=== PATIENT | female | born 1970 | race Caucasian/White ===

== ENCOUNTER 2021-03-15 14:21 | Emergency (ER) | payer OTHER ==
[2021-03-15 14:28] VITALS: TEMP 98
[2021-03-15 14:58] LABS: Glucose,Whole Blood 120 mg/dL (75-99)
[2021-03-15] MEDS ORDERED: ALPRAZolam 0.5 MG TAB PO STA (15:14)
--- NOTE | 2021-03-15 15:19 | ED ---
General Adult HPI - General Chief complaint: Arrhythmia/Palpitations Stated complaint: Chest Pain Time Seen by Provider: 03/15/21 14:47 Source: patient Mode of arrival: wheelchair Limitations: no limitations - History of Present Illness Initial comments: Dictation was produced using [employer] dictation software. please excuse any grammatical, word or spelling errors. Chief Complaint: 50-year-old female presents with acute anxiety History of Present Illness: Patient is 50-year-old feel she presents to the emergency department for acute anxiety. Patient has history of depression. She states that over the last several days she's been feeling more anxious and upset especially with ongoing coronavirus issues and bad news going on in the world. She states that over the last several days she's been having several panic attacks where she feels as though she is cannot have sudden cardiac . Patient denies any history of cardiac issues. She does have a history of thyroid disease. Patient does use tobacco. She has no chest pain or shortness of breath. Today she feels like her anxiety is worse. Patient is a history of depression. The ROS documented in this emergency department record has been reviewed and confirmed by me. Those systems with pertinent positive or negative responses have been documented in the HPI. All other systems are other negative and/or noncontributory. PHYSICAL EXAM: General Impression: Alert and oriented x3, tearful HEENT: Normocephalic atraumatic, extra-ocular movements intact, pupils equal and reactive to light bilaterally, mucous membranes moist. Cardiovascular: Heart regular rate and rhythm Chest: Able to complete full sentences, no retractions, no tachypnea Abdomen: abdomen soft, non-tender, non-distended, no organomegaly Musculoskeletal: Pulses present and equal in all extremities, no peripheral edema Motor: no focal deficits noted Neurological: CN II-XII grossly intact, no focal motor or sensory deficits noted Skin: Intact with no visualized rashes Psych: Normal affect and mood ED course: 50-year-old female presents to the emergency department for anxiety reaction. Vital signs upon arrival are within acceptable limits. EKG is benign. Patient given oral Xanax patient is observed in the emergency department for approximately one hour and 45 minutes. Reevaluated at bedside at 4 PM found to be significantly improved. Patient given few tabs of anxiolytic medications. She is advised to stop watching too much news especially if it triggers her anxiety. Told to follow up with primary care doctor for outpatient management. EKG interpretation: Ventricular rate 75, normal sinus rhythm, DC interval 118, QRS 80, QTc 413. No DC prolongation, no QTC prolongation, no ST or T-wave changes noted. Overall, this EKG is unremarkable - Related Data Home Medications Medication Instructions Recorded Confirmed Mirtazapine [Remeron] 45 mg PO HS 08/18/17 08/18/17 Multivitamins, Thera [Multivitamin 1 tab PO DAILY 08/18/17 08/18/17 (formulary)] Thyroid, Pork [[place] Thyroid] 30 mg PO DAILY 08/18/17 08/18/17 Vitamin B-12 Sl 1000mcg 1,000 mcg PO DAILY 08/18/17 08/18/17 Previous Rx's Medication Instructions Recorded Dicyclomine [Bentyl] 20 mg PO QID #20 tablet 08/18/17 Ondansetron [Zofran ODT] 4 mg PO Q8HR PRN #10 tab 08/18/17 ALPRAZolam [Xanax] 0.5 mg PO DAILY PRN #3 tab 03/15/21 Allergies Allergy/AdvReac Type Severity Reaction Status Date / Time aspirin AdvReac Unknown Verified 03/15/21 14:23 Review of Systems ROS Statement: Those systems with pertinent positive or pertinent negative responses have been documented in the HPI. ROS Other: All systems not noted in ROS Statement are negative. Past Medical History Past Medical History: Thyroid Disorder History of Any Multi-Drug Resistant Organisms: None Reported Past Surgical History: Breast Surgery, Tubal Ligation Additional Past Surgical History / Comment(s): brain surgery (AVM) Past Psychological History: Anxiety, Depression Smoking Status: Current every day smoker Past Alcohol Use History: None Reported Past Drug Use History: None Reported, Marijuana General Exam Limitations: no limitations Course Vital Signs 03/15/21 03/15/21 14:24 15:00 Temperature 98.0 F Pulse Rate 84 Pulse Rate [ 82 Bilateral Radial] Respiratory 22 18 Rate Blood Pressure 109/71 O2 Sat by Pulse 100 Oximetry Medical Decision Making - Lab Data Lab Results 03/15/21 Range/Units 14:57 POC Glucose (mg/dL) 120 H (75-99) mg/dL POC Glu Director Outpatient Services ID Freida Dowd Disposition Clinical Impression: Anxiety reaction Disposition: HOME SELF-CARE Condition: Fair Instructions (If sedation given, give patient instructions): Anxiolysis in Adults (ED) Prescriptions: ALPRAZolam [Xanax] 0.5 mg PO DAILY PRN #3 tab PRN Reason: Anxiety Is patient prescribed a controlled substance at d/c from ED?: Yes If prescribed controlled substance>3 days was MAPS reviewed?: Prescribed <3 Days Referrals: Karol Her MD [Primary Care Provider] - 1-2 days
[2021-03-15 16:29] VITALS: BP 102/66; PULSE 78; RESP 16
== END 2021-03-15 16:29 | disposition home or self-care (01) ==
LOC: EC 14:21
DX: F41.1 Generalized anxiety disorder (principal); F32.9 Major depressive disorder, single episode, unspecified; F17.200 Nicotine dependence, unspecified, uncomplicated; F12.90 Cannabis use, unspecified, uncomplicated; Z79.899 Other long term (current) drug therapy; Z88.6 Allergy status to analgesic agent
CPT/HCPCS: 36415; 93005; 99283

== ENCOUNTER 2021-12-17 10:08 | Emergency (ER) | payer OTHER ==
[2021-12-17 10:25] VITALS: BP 114/76; PULSE 95; RESP 18; TEMP 97.8
[2021-12-17] MEDS ORDERED: LORazepam 2 MG/ML INJ IV STA (10:46)
--- NOTE | 2021-12-17 11:09 | ED ---
General Adult HPI - General Chief complaint: Anxiety Stated complaint: Post Op complications Time Seen by Provider: 12/17/21 10:20 Source: patient, RN notes reviewed, old records reviewed Mode of arrival: ambulatory Limitations: no limitations - History of Present Illness Initial comments: This a 50-year-old female presents emergency Department with a recent past medical history significant breast implant removal on Saturday. Patient states since then she said were very tight bra and she's been panicky and feels very anxious. Patient states she keeps thinking she might because of the restriction around her chest per patient states she's been having tingling in her hands and her feet and having some episodes where she's having palpitations and feeling hot. Patient denies any actual fevers patient denies any drainage. Patient states she has quite a bit going on her life that could make her anxious. - Related Data Home Medications Medication Instructions Recorded Confirmed Mirtazapine [Remeron] 45 mg PO HS 08/18/17 08/18/17 Multivitamins, Thera [Multivitamin 1 tab PO DAILY 08/18/17 08/18/17 (formulary)] Thyroid, Pork [[place] Thyroid] 30 mg PO DAILY 08/18/17 08/18/17 Vitamin B-12 Sl 1000mcg 1,000 mcg PO DAILY 08/18/17 08/18/17 Previous Rx's Medication Instructions Recorded Dicyclomine [Bentyl] 20 mg PO QID #20 tablet 08/18/17 Ondansetron [Zofran ODT] 4 mg PO Q8HR PRN #10 tab 08/18/17 ALPRAZolam [Xanax] 0.5 mg PO DAILY PRN #3 tab 03/15/21 Allergies Allergy/AdvReac Type Severity Reaction Status Date / Time aspirin AdvReac Unknown Verified 12/17/21 10:24 Review of Systems ROS Statement: Those systems with pertinent positive or pertinent negative responses have been documented in the HPI. ROS Other: All systems not noted in ROS Statement are negative. Past Medical History Past Medical History: Thyroid Disorder History of Any Multi-Drug Resistant Organisms: None Reported Past Surgical History: Breast Surgery, Tubal Ligation Additional Past Surgical History / Comment(s): brain surgery (AVM) Past Psychological History: Anxiety, Depression Smoking Status: Current every day smoker Past Alcohol Use History: None Reported Past Drug Use History: None Reported, Marijuana General Exam - General Exam Comments Initial Comments: GENERAL: Patient is well-developed and well-nourished. Patient is nontoxic and well- hydrated and is in no acute distress. ENT: Neck is soft and supple. No significant lymphadenopathy is noted. Oropharynx is clear. Moist mucous membranes. Neck has full range of motion without eliciting any pain. EYES: The sclera were anicteric and conjunctiva were pink and moist. Extraocular movements were intact and pupils were equal round and reactive to light. Eyelids were unremarkable. PULMONARY: Unlabored respirations. Good breath sounds bilaterally. No audible rales rhonchi or wheezing was noted. CARDIOVASCULAR: There is a regular rate and rhythm without any murmurs gallops or rubs. The surgical sites show no signs of infection. ABDOMEN: Soft and nontender with normal bowel sounds. SKIN: Skin is clear with no lesions or rashes and otherwise unremarkable. NEUROLOGIC: Patient is alert and oriented x3. Cranial nerves II through XII are grossly intact. Motor and sensory are also intact. Normal speech, volume and content. Symmetrical smile. MUSCULOSKELETAL: Normal extremities with adequate strength and full range of motion. No lower extremity swelling or edema. No calf tenderness. LYMPHATICS: No significant lymphadenopathy is noted PSYCHIATRIC: Patient is very anxious. Limitations: no limitations Course Vital Signs 12/17/21 10:18 Temperature 97.8 F Pulse Rate 95 Respiratory 18 Rate Blood Pressure 114/76 O2 Sat by Pulse 98 Oximetry Medical Decision Making - Medical Decision Making Patient received a milligram of Ativan and was sleeping and when she woke up she was feeling considerably better. - Lab Data Result diagrams: 12/17/21 11:10 12/17/21 11:10 Lab Results 12/17/21 12/17/21 Range/Units 11:10 11:10 WBC 9.0 (3.8-10.6) k/uL RBC 4.27 (3.80-5.40) m/uL Hgb 13.5 (11.4-16.0) gm/dL Hct 41.1 (34.0-46.0) % MCV 96.3 (80.0-100.0) fL MCH 31.7 (25.0-35.0) pg MCHC 32.9 (31.0-37.0) g/dL RDW 12.9 (11.5-15.5) % Plt Count 485 H (150-450) k/uL MPV 6.6 Neutrophils % 71 % Lymphocytes % 19 % Monocytes % 3 % Eosinophils % 5 % Basophils % 0 % Neutrophils # 6.4 (1.3-7.7) k/uL Lymphocytes # 1.7 (1.0-4.8) k/uL Monocytes # 0.3 (0-1.0) k/uL Eosinophils # 0.4 (0-0.7) k/uL Basophils # 0.0 (0-0.2) k/uL Sodium 139 (137-145) mmol/L Potassium 4.0 (3.5-5.1) mmol/L Chloride 107 (98-107) mmol/L Carbon Dioxide 25 (22-30) mmol/L Anion Gap 7 mmol/L BUN 9 (7-17) mg/dL Creatinine 0.76 (0.52-1.04) mg/dL Est GFR (CKD-EPI)AfAm >90 (>60 ml/min/1.73 sqM) Est GFR (CKD-EPI)NonAf >90 (>60 ml/min/1.73 sqM) Glucose 105 H (74-99) mg/dL Calcium 9.6 (8.4-10.2) mg/dL Total Bilirubin 0.5 (0.2-1.3) mg/dL AST 32 (14-36) U/L ALT 26 (4-34) U/L Alkaline Phosphatase 69 (38-126) U/L Total Protein 7.5 (6.3-8.2) g/dL Albumin 4.5 (3.5-5.0) g/dL Disposition Clinical Impression: Acute anxiety Disposition: HOME SELF-CARE Instructions (If sedation given, give patient instructions): Generalized Anxiety Disorder (ED) Is patient prescribed a controlled substance at d/c from ED?: No Referrals: Karol Her MD [Primary Care Provider] - 1-2 days Time of Disposition: 12:36
[2021-12-17 11:33] LABS: Basophils % (A) 0 %; Eosinophils # (A) 0.4 k/uL (0-0.7); Eosinophils % (A) 5 %; HCT 41.1 % (34.0-46.0); HGB 13.5 gm/dL (11.4-16.0); Lymphocytes # (A) 1.7 k/uL (1.0-4.8); Lymphocytes % (A) 19 %; MCH 31.7 pg (25.0-35.0); MCHC 32.9 g/dL (31.0-37.0); MCV 96.3 fL (80.0-100.0); Mean Platelet Volume 6.6; Monocytes # (A) 0.3 k/uL (0-1.0); Monocytes % (A) 3 %; Neutrophils # (A) 6.4 k/uL (1.3-7.7); Neutrophils % (A) 71 %; Platelet Count 485 k/uL (150-450); RBC 4.27 m/uL (3.80-5.40); RDW 12.9 % (11.5-15.5)
[2021-12-17 11:36] LABS: ALT 26 U/L (4-34); AST 32 U/L (14-36); African American GFR (CKD) >90 (>60 ml/min/1.73 sqM); Albumin 4.5 g/dL (3.5-5.0); Alkaline Phosphatase 69 U/L (38-126); Anion Gap 7 mmol/L; Blood Urea Nitrogen 9 mg/dL (7-17); Calcium 9.6 mg/dL (8.4-10.2); Carbon Dioxide 25 mmol/L (22-30); Chloride 107 mmol/L (98-107); Glucose 105 mg/dL (74-99); Non-African American GFR(CKD) >90 (>60 ml/min/1.73 sqM); Sodium 139 mmol/L (137-145); Total Bilirubin 0.5 mg/dL (0.2-1.3); Total Protein 7.5 g/dL (6.3-8.2)
[2021-12-17] MEDS ORDERED: ALPRAZolam 0.25 MG TAB PO STA ×2 (12:33)
== END 2021-12-17 13:08 | disposition home or self-care (01) ==
LOC: EC 10:08
DX: F41.9 Anxiety disorder, unspecified (principal); E07.9 Disorder of thyroid, unspecified; F17.200 Nicotine dependence, unspecified, uncomplicated; Z88.6 Allergy status to analgesic agent; Z79.890 Hormone replacement therapy
CPT/HCPCS: 36415; 80053; 85025; 99283; 96374; J2060

== ENCOUNTER → 2022-06-25 | Outpatient (CLI) | payer OTHER ==
--- NOTE | 2022-06-26 15:50 | MM ---
Reason for Exam: Screening (asymptomatic). Last mammogram was performed 11 year(s) and 9 month(s) ago. Patient History: Menarche at age 13. First Full-Term at age 20. Perimenopausal. 11/12/2021, Bilateral Explants. 2008, Bilateral Implants. Maternal grandmother had breast cancer, age 70. Maternal aunt had breast cancer. Risk Values: Mahnaz 5 year model risk: 0.7%. NCI Lifetime model risk: 6.5%. Prior Study Comparison: 10/09/2010 Bilateral Diagnostic Mammogram, [facility]. Tissue Density: The breast tissue is heterogeneously dense. This may lower the sensitivity of mammography. Findings: Analyzed By CAD. Increased fatty replacement since prior study. Interval removal of bilateral breast implants. A tiny round skin lesion outer aspect right breast suspected. No suspicious group of microcalcification or distortion in either breast. Overall Assessment: Negative, BI-RAD 1 Management: Screening Mammogram of both breasts in 1 year. A clinical breast exam by your physician is recommended on an annual basis and results should be correlated with mammographic findings. Electronically signed and approved by: Jose Rocha M.D.
== END | disposition home or self-care (01) ==
LOC: RADMAMWWP 11:17
PROVIDERS: ATTEND Family Medicine
DX: Z12.31 Encounter for screening mammogram for malignant neoplasm of breast (principal); Z80.3 Family history of malignant neoplasm of breast
CPT/HCPCS: 77063; 77067

== ENCOUNTER → 2024-11-20 | Outpatient (CLI) | payer OTHER ==
--- NOTE | 2024-11-23 07:20 | MM ---
Reason for Exam: Screening (asymptomatic). Last mammogram was performed 2 year(s) and 5 month(s) ago. Patient History: Menarche at age 13. First Full-Term at age 20. Postmenopausal. 11/12/2021, Bilateral Explants. 2008, Bilateral Implants. Maternal grandmother had breast cancer, age 70. Maternal aunt had breast cancer. Risk Values: Mahnaz 5 year model risk: 0.8%. NCI Lifetime model risk: 6.3%. Prior Study Comparison: 10/09/2010 Bilateral Diagnostic Mammogram, [facility]. 06/25/2022 Bilateral MG 3D screening mammo w/cad, [facility]. Tissue Density: The breasts are heterogeneously dense, which may obscure small masses. Findings: Analyzed By CAD. There is no suspicious group of microcalcifications or new suspicious mass in either breast. Overall Assessment: Negative, BI-RAD 1 Management: Screening Mammogram of both breasts in 1 year. . Patient should continue monthly self-breast exams. A clinical breast exam by your physician is recommended on an annual basis. This exam should not preclude additional follow-up of suspicious palpable abnormalities. Note on Mahnaz scores and lifetime risk: 1. A Mahnaz score greater than 3% is considered moderate risk. If this is the case, consider specialist referral to assess eligibility for a risk reducing agent. 2. If overall lifetime risk for the development of breast cancer is 20% or higher, the patient may qualify for future screening with alternating mammogram and breast MRI. [facility], , 11/23/2024 7:17 AM. Electronically signed and approved by: Jose Rocha M.D.
== END | disposition home or self-care (01) ==
LOC: RADMAMWWP 14:45
PROVIDERS: ATTEND Family Medicine
DX: Z12.31 Encounter for screening mammogram for malignant neoplasm of breast (principal); R92.333 Mammographic heterogeneous density, bilateral breasts; Z80.3 Family history of malignant neoplasm of breast; Z98.82 Breast implant status; Z78.0 Asymptomatic menopausal state
CPT/HCPCS: 77063; 77067